=== PATIENT | male | born 1965 | race Caucasian/White ===

== ENCOUNTER 2017-11-19 18:38 | Emergency (ER) | payer BC ==
--- OUTSIDE RECORDS SUMMARY | 2017-11-19 18:54 | XMS REPORT ---
:1965 External Reference #:[id number] Author Organization [facility] Address [address] [address] Phone [phone] Care Team Providers Name Role Phone Contreras Sheikh DO Care Team Information Human Resources Records Clerk Unavailable Payers Type Date Identification Numbers Payment Provider Subscriber Commercial Effective: Policy Number: [id number] [facility] Commercial Jesus Robbins 2013 Group Number: [employer] [address] [address] Group Name: MINA Vogel [id number] PayID: [id number] Problems Date Description Provider Status Onset: 05/21/2014 Benign essential hypertension Contreras Sheikh DO Active Onset: 05/21/2014 Type 2 diabetes mellitus Contreras Sheikh DO Active Onset: 04/02/2012 Obstructive sleep apnea syndrome Contreras Sheikh DO Active Onset: 11/21/2011 Obesity Contreras Sheikh DO Active Onset: 11/21/2011 Essential hypertension Contreras Sheikh DO Active Family History Date Family Member(s) Problem(s) Comments Father [place] Father Gout Father Hypertension Father CVA Father Hypercholesterolemia Mother Hypertension Mother Hypercholesterolemia Mother Diabetes, Adult First Sister Thyroid Disease First Sister Bennett's palsy Maternal Grandfather Diabetes, Adult Maternal Grandmother Diabetes, Adult Maternal Aunts Cancer, Bone Social History Type Date Description Comments Education Highest level completed, 12th grade Marital Status Occupation Teacher Cigarette Use Never Smoked Cigarettes ETOH Use Occasionally consumes alcohol Recreational Drug Use Denies Drug Use Daily Caffeine Consumes on average 1 soda per day Allergies, Adverse Reactions, Alerts Date Description Reaction Status Severity Comments 05/22/2014 NKDA active Medications Medication Date Status Form Strength Qnty SIG Indications Ordering Provider Metformin HCL ER Active Tablets 500mg 90tabs Take One Sheikh, 017 ER 24HR Tablet Conterras, By Mouth DO Every Day Lisinopril Active Tablets 20mg 30tabs Take One Sheikh, 012 Tablet Contreras, By Mouth DO Every Day Chlorthalidone Active Tablets 25mg 30tabs Take One Sheikh, 012 Tablet Contreras, By Mouth DO Every Day Immunizations CPT Code Status Date Vaccine Lot # [id number] Given 11/21/2011 Tdap (Adacel) Ages 7 And Above Only Vital Signs Date Vital Result Comment 11/06/2017 Weight 259.00 lb Heart Rate 92 /min BP Systolic 148 mmHg BP Diastolic 94 mmHg Respiratory Rate 18 /min Height 66.5 inches 5'6.50" (04/2016) BMI (Body Mass Index) 41.2 kg/m2 05/25/2017 Weight 260.00 lb Heart Rate 82 /min BP Systolic 150 mmHg BP Diastolic 86 mmHg BP Systolic Recheck 132 mmHg BP Diastolic Recheck 82 mmHg Respiratory Rate 18 /min Height 66.5 inches 5'6.50" (04/2016) BMI (Body Mass Index) 41.3 kg/m2 02/16/2017 Weight 260.00 lb Heart Rate 80 /min BP Systolic 152 mmHg BP Diastolic 88 mmHg BP Systolic Recheck 130 mmHg BP Diastolic Recheck 84 mmHg Respiratory Rate 18 /min Height 66.5 inches 5'6.50" (04/2016) BMI (Body Mass Index) 41.3 kg/m2 11/21/2016 Weight 262.00 lb Heart Rate 72 /min BP Systolic 158 mmHg BP Diastolic 96 mmHg BP Systolic Recheck 136 mmHg BP Diastolic Recheck 90 mmHg Respiratory Rate 18 /min Height 66.5 inches 5'6.50" (04/2016) BMI (Body Mass Index) 41.6 kg/m2 05/02/2016 Weight 261.00 lb Heart Rate 80 /min BP Systolic 140 mmHg BP Diastolic 88 mmHg Respiratory Rate 18 /min Height 66.5 inches 5'6.50" (04/2016) BMI (Body Mass Index) 41.5 kg/m2 10/17/2015 Weight 260.00 lb Heart Rate 84 /min BP Systolic 140 mmHg BP Diastolic 94 mmHg Respiratory Rate 19 /min Height 66.5 inches 5'6.50" BMI (Body Mass Index) 41.3 kg/m2 02/14/2015 Weight 255.00 lb BP Systolic 148 mmHg BP Diastolic 98 mmHg BP Systolic Recheck 142 mmHg BP Diastolic Recheck 92 mmHg Height 66.5 inches 5'6.50" BMI (Body Mass Index) 40.5 kg/m2 10/09/2014 Weight 254.00 lb Heart Rate 88 /min BP Systolic 150 mmHg BP Diastolic 86 mmHg BP Systolic Recheck 144 mmHg BP Diastolic Recheck 94 mmHg Respiratory Rate 18 /min Height 66.5 inches 5'6.50" BMI (Body Mass Index) 40.4 kg/m2 05/23/2014 Weight 254.00 lb Heart Rate 80 /min BP Systolic 142 mmHg BP Diastolic 90 mmHg Respiratory Rate 18 /min Height 66.5 inches 5'6.50" BMI (Body Mass Index) 40.4 kg/m2 12/16/2013 Weight 250.00 lb Heart Rate 80 /min BP Systolic 142 mmHg BP Diastolic 86 mmHg Respiratory Rate 20 /min Height 66.5 inches 5'6.50" 07/28/2013 Weight 254.00 lb Heart Rate 70 /min BP Systolic 150 mmHg BP Diastolic 98 mmHg Respiratory Rate 18 /min Height 66.5 inches 5'6.50" 04/13/2013 Weight 247.00 lb Heart Rate 92 /min BP Systolic 140 mmHg BP Diastolic 94 mmHg Respiratory Rate 20 /min 10/11/2012 BP Systolic 144 mmHg BP Diastolic 98 mmHg 10/11/2012 Weight 250.00 lb Heart Rate 74 /min BP Systolic 150 mmHg BP Diastolic 100 mmHg Respiratory Rate 18 /min 04/02/2012 BP Systolic 144 mmHg BP Diastolic 94 mmHg 04/02/2012 Weight 256.00 lb Heart Rate 96 /min BP Systolic 160 mmHg BP Diastolic 100 mmHg Respiratory Rate 20 /min Height 66.5 inches 5'6.50" 12/22/2011 BP Systolic 120 mmHg BP Diastolic 86 mmHg 12/22/2011 Weight 253.56 lb Heart Rate 80 /min BP Systolic 132 mmHg BP Diastolic 100 mmHg Respiratory Rate 19 /min Height 66.5 inches 5'6.50" 12/05/2011 Weight 252.50 lb Heart Rate 90 /min BP Systolic 166 mmHg BP Diastolic 132 mmHg Respiratory Rate 18 /min Height 66.5 inches 5'6.50" 11/21/2011 Weight 254.12 lb Heart Rate 82 /min BP Systolic 170 mmHg BP Diastolic 134 mmHg Respiratory Rate 19 /min Height 66.5 inches 5'6.50" Results Test Date Test Result H/L Range Note Differential-WBC Confirm 05/29/2017 Total Cells Counted 100 #CELLS 1 Band% 1 % 0-8 1 Neutrophils% 53 % 33-73 1 Lymph% 19 % Low 20-42 1 Atypical Lymph% 5 % 0-7 1 Monocyte% 20 % High 0-10 1 Eosinophil% 1 % 0-5 1 Basophil% 1 % 0-2 1 Platelet Estimate NORMAL 1 RBC Morphology NORMAL 1 Slide Review 05/29/2017 Slide Review DIFF ORDERED 1 Hemoglobin A1c 05/29/2017 Glycohemoglobin (A1c) 6.6 % High 4.2-6.3 1, 2 eAG 143 mg/dL 1 CBC With Auto Diff 05/29/2017 White Blood Count 10.4 K/uL 3.4-10.5 1 Red Blood Count 5.35 M/uL 4.20-5.80 1 Hemoglobin 17.4 gm/dL High 12.8-17.0 1 Hematocrit 49.4 % High 38.0-48.0 1 Mean Cell Volume 92.3 fl 80.0-96.0 1 Mean Corpuscular HGB 32.5 pg 27.0-33.0 1 Mean Corpuscular HGB Conc 35.2 g/dL 31.7-36.0 1 Platelet Count 315 K/uL 155-360 1 Red Cell Distri Width SD 45.7 fl 36-51 1 Red Cell Distri Width %CV 13.6 % 11.6-15.8 1 Mean Platelet Volume 9.1 fL 6.6-10.6 1, 3 Neut# 6.42 K/uL 1.8-7.0 1 Lymph # 1.84 K/uL 1.0-4.0 1 Moffat # 1.87 K/uL High 0.0-0.8 1 Eos # 0.22 K/uL 0.0-0.5 1 Baso # 0.03 K/uL 0.0-0.1 1 Comprehensive Metabolic-RL 05/29/2017 Glucose 168 mg/dL High 74-106 1 BUN 19 mg/dL High 7-18 1 Creatinine 1.0 mg/dL 0.6-1.3 1 Glom Filtration Rate, Estimate >60 mL/min >60 1 If >60 mL/min >60 1, 4 BUN/Creat 19.0 ratio 1 Sodium 137 mmol/L 136-145 1 Potassium 3.6 mmol/L 3.5-5.1 1 Chloride 100 mmol/L 98-107 1 Carbon Dioxide 34 mmol/L High 21-32 1 Anion Gap 3 mEq/L Low 8-16 1 Calcium 9.3 mg/dL 8.5-10.1 1 Total Protein 8.0 g/dL 6.4-8.2 1 Albumin 3.6 g/dL 3.4-5.0 1 Globulin 4.4 g/dL High 1.9-4.3 1 Alb/Glob 0.8 ratio 1 Bilirubin,Total 0.5 mg/dL 0.2-1.0 1 Sgot/Ast 31 U/L 15-37 1 SGPT/Alt 55 U/L 12-78 1 Alkaline Phosphatase 93 U/L 45-117 1 Laboratory test finding 05/29/2017 Thyroid Stim Hormone 1.94 uIU/mL 0.30- 4.20 1 Lipid 05/29/2017 Cholesterol 194 mg/dL <200 1, 5 Triglycerides 181 mg/dL High <150 1, 6 HDL Cholesterol 49 mg/dL >40 1, 7 LDL-Cholesterol 109 mg/dL < 100 1, 8 Hemoglobin A1c 02/25/2017 Glycohemoglobin (A1c) 7.2 % High 4.2-6.3 9, 10 eAG 160 mg/dL 9 Laboratory test finding 11/24/2016 Fit(Fecal Occult Blood) Negative Negative Hemoglobin A1c 11/21/2016 Hemoglobin A1c 8.4 % High 4.1-5.9 Estimated Average Glucose Calc 194 High 71-140 CBC With Auto Diff 11/21/2016 WBC 12.2 K/uL High 4.1-11.0 RBC 5.11 M/uL 4.60-6.10 Hemoglobin 16.4 gm/dL 13.5-18.0 Hematocrit 47.5 % 41.0-53.0 MCV 93.0 fL 80.0-97.0 MCH 32.2 pg High 27.0-32.0 MCHC 34.6 g/dL 32.0-36.0 RDW 13.7 % 11.5-14.5 PLT Count 306 K/ul 140-400 Neutrophil 67.1 % 35.0-75.0 Lymphocyte 19.9 % 16.0-52.0 Monocyte 11.2 % High 2.0-10.0 Eosinophil 1.3 % 0.0-5.0 Basophil 0.5 % 0.0-4.0 Abs Neutrophils 8.2 K/uL High 2.1-8.0 Abs Lymphocytes 2.4 K/uL 0.8-5.5 Abs Monocytes 1.4 K/uL High 0.1-1.0 Abs Eosinophils 0.2 K/uL 0.0-0.5 Abs Basophils 0.1 K/uL 0.0-0.3 Basic (BMP) 11/21/2016 Sodium 136 mmol/L 135-146 11 Potassium 3.9 mmol/L 3.5-5.2 Chloride# 95 mmol/L Low 97-110 12 Carbon Dioxide 30 mmol/L 24-34 Glucose 168 mg/dL High 70-105 BUN 18 mg/dL 6-26 Creatinine 1.1 mg/dL 0.5-1.4 Calcium 9.7 mg/dL 8.5-10.2 Non Margoth Egfr >60 >60 13 Margoth Egfr >60 >60 14 Anion Gap 11 mmol/L 7-16 15 Laboratory test finding 11/21/2016 TSH 1.86 uIU/mL 0.35-4.94 Lipid Treatment 11/21/2016 Cholesterol 171 mg/dL 50-199 Triglycerides 183 mg/dL 30-200 HDL 45 mg/dL 29-71 16 Chol/ HDL Ratio 3.8 ratio Low 4.0-6.7 VLDL 37 mg/dL High 2-29 LDL (Calc) 90 mg/dL 20-99 17 Alt 49 U/L High 3-42 Ast 25 U/L 8-42 Glycohemoglobin A1c 05/08/2016 Glycohemoglobin (A1c) 7.2 % High 4.2-6.3 18, 19 eAG 160 mg/dL 18 Basic Metabolic Panel 05/08/2016 Glucose 127 mg/dL High 74-106 18 BUN 22 mg/dL High 7-18 18 Creatinine 1.0 mg/dL 0.6-1.3 18 Glom Filtration Rate, Estimate >60 mL/min >60 18 If >60 mL/min >60 18, 20 BUN/Creat 22.0 ratio 18 Sodium 139 mmol/L 136-145 18 Potassium 3.5 mmol/L 3.5-5.1 18 Chloride 102 mmol/L 98-107 18 Carbon Dioxide 28 mmol/L 21-32 18 Anion Gap 9 mEq/L 8-16 18 Calcium 9.0 mg/dL 8.5-10.1 18 LDL Cholesterol Profile 05/08/2016 Cholesterol 161 mg/dL <200 18, 21 Triglycerides 83 mg/dL <150 18, 22 HDL Cholesterol 45 mg/dL >40 18, 23 LDL-Cholesterol 99 mg/dL < 100 18, 24 Lipid Treatment 10/30/2015 Cholesterol 190 mg/dL 50-199 25 Triglycerides 159 mg/dL 30-200 25 HDL 45 mg/dL 29-71 25, 26 Chol/ HDL Ratio 4.2 ratio 4.0-6.7 25 VLDL 32 mg/dL High 2-29 25 LDL (Calc) 113 mg/dL High 20-99 25, 27 Alt 33 U/L 3-42 25 Ast 21 U/L 8-42 25 Laboratory test finding 10/30/2015 Hemoglobin A1c 7.4 % High 4.1-5.9 25 CBC With Auto Diff 10/30/2015 WBC 13.3 K/uL High 4.1-11.0 25 RBC 5.13 M/uL 4.60-6.10 25 Hemoglobin 16.6 gm/dL 13.5-18.0 25 Hematocrit 47.4 % 41.0-53.0 25 MCV 92.4 fL 80.0-97.0 25 MCH 32.3 pg High 27.0-32.0 25 MCHC 35.0 g/dL 32.0-36.0 25 RDW 13.5 % 11.5-14.5 25 PLT Count 318 K/ul 140-400 25 Neutrophil 73.3 % 35.0-75.0 25 Lymphocyte 15.5 % Low 16.0-52.0 25 Monocyte 10.0 % 2.0-10.0 25 Eosinophil 0.8 % 0.0-5.0 25 Basophil 0.4 % 0.0-4.0 25 Abs Neutrophils 9.8 K/uL High 2.1-8.0 25 Abs Lymphocytes 2.1 K/uL 0.8-5.5 25 Abs Monocytes 1.3 K/uL High 0.1-1.0 25 Abs Eosinophils 0.1 K/uL 0.0-0.5 25 Abs Basophils 0.1 K/uL 0.0-0.3 25 Basic (BMP) 10/30/2015 Sodium 137 mmol/L 134-142 25 Potassium 4.0 mmol/L 3.5-5.2 25 Chloride 98 mmol/L 97-109 25 Carbon Dioxide 31 mmol/L 24-34 25 Glucose 143 mg/dL High 70-105 25 BUN 19 mg/dL 6- 25 Creatinine 1.1 mg/dL 0.5-1.4 25 Calcium 9.6 mg/dL 8.5-10.2 25 Anion Gap 12 mmol/L 6-14 25 Non Margoth Egfr >60 >60 25, 28 Margoth Egfr >60 >60 25, 29 Laboratory test finding 10/30/2015 TSH 2.00 uIU/mL 0.35-4.94 25 Laboratory test finding 02/14/2015 Hemoglobin A1c 6.6 % High 4.1-5.9 Basic ([facility]) 02/14/2015 Sodium 133 mmol/L Low 134-142 Potassium 4.1 mmol/L 3.5-5.2 Chloride 97 mmol/L 97-109 Carbon Dioxide 29 mmol/L 24- Glucose 100 mg/dL 70-105 BUN 16 mg/dL 09-29 Creatinine 1.0 mg/dL 0.5-1.4 Calcium 9.1 mg/dL 8.5-10.2 Anion Gap 11 mmol/L 09-17 Non Margoth Egfr >60 >60 30 Margoth Egfr >60 >60 31 Laboratory test finding 10/09/2014 Hemoglobin A1c 6.8 % High 4.1-5.9 Basic (BMP) 10/09/2014 Sodium 134 mmol/L 134-142 Potassium 3.9 mmol/L 3.5-5.2 Chloride 97 mmol/L 97-109 Carbon Dioxide 28 mmol/L 24 Glucose 143 mg/dL High 70-105 BUN 18 mg/dL 09-29 Creatinine 1.0 mg/dL 0.5-1.4 Calcium 9.1 mg/dL 8.5-10.2 Anion Gap 13 mmol/L 09-17 Non Margoth Egfr >60 >60 32 Margoth Egfr >60 >60 33 Lipid Treatment 10/09/2014 Cholesterol 181 mg/dL 50-199 Triglycerides 90 mg/dL 30-200 HDL 44 mg/dL 29-71 34 Chol/ HDL Ratio 4.1 ratio 4.0-6.7 VLDL 18 mg/dL 2-29 LDL (Calc) 119 mg/dL High 20-99 35 Alt 35 U/L 3-42 Ast 25 U/L 8-42 Lipid Treatment 05/24/2014 Cholesterol 185 mg/dL 50-199 Triglycerides 132 mg/dL 30-200 HDL 41 mg/dL 29- 36 Chol/ HDL Ratio 4.5 ratio 4.0-6.7 VLDL 26 mg/dL 2- LDL (Calc) 118 mg/dL High 20-99 37 Alt 30 U/L 3-42 Ast 20 U/L 8-42 Laboratory test finding 05/24/2014 TSH 2.77 uIU/mL 0.34-5.60 Basic (BMP) 05/24/2014 Sodium 135 mmol/L 134-142 Potassium 4.2 mmol/L 3.5-5.2 Chloride 95 mmol/L Low 97-109 Carbon Dioxide 33 mmol/L 24-34 Glucose 116 mg/dL High 70-105 BUN 14 mg/dL 6 Creatinine 1.0 mg/dL 0.5-1.4 Calcium 9.9 mg/dL 8.5-10.2 Anion Gap 11 mmol/L 6-14 Non Margoth Egfr >60 >60 38 Margoth Egfr >60 >60 39 CBC With Auto Diff 05/24/2014 WBC 11.2 K/uL High 4.1-11.0 RBC 5.36 M/uL 4.60-6.10 Hemoglobin 17.1 gm/dL 13.5-18.0 Hematocrit 50.4 % 41.0-53.0 MCV 94.1 fL 80.0-97.0 MCH 31.9 pg 27.0-32.0 MCHC 33.9 g/dL 32.0-36.0 RDW 13.6 % 11.5-14.5 PLT Count 337 K/ul 140-400 Neutrophil 68.5 % 35.0-75.0 Lymphocyte 19.0 % 16.0-52.0 Monocyte 11.4 % High 2.0-10.0 Eosinophil 0.7 % 0.0-5.0 Basophil 0.4 % 0.0-4.0 Abs Neutrophils 7.7 K/uL 2.1-8.0 Abs Lymphocytes 2.1 K/uL 0.8-5.5 Abmon 1.3 K/uL High 0.1-1.0 Abs Eosinophils 0.1 K/uL 0.0-0.5 Abs Basophils 0.0 K/uL 0.0-0.3 Laboratory test finding 05/24/2014 Hemoglobin A1c 6.4 % High 4.1-5.9 Laboratory test finding 11/30/2013 % A1c 6.5 % 4.1-6.5 % Baso. 0.6 % 0.0-2.0 % Eos. 1.2 % 0.0-4.0 % Lymph 21 % 20-44 % Moffat 9.9 % 2.0-10.0 % Dante 68 % 50-70 Absolute Baso. 0.1 K/ul 0.0-0.3 Absolute Eos. 0.1 K/ul 0.0-0.5 Absolute Lymph. 2.3 K/ul 0.8-4.8 Absolute Moffat. 1.1 K/ul High 0.1-1.0 Absolute Dante. 7.70 K/ul High 2.05-7.63 Alt 38.0 U/L 21.0-72.0 Ast 22.0 U/L 17.0-59.0 BUN 20.0 mg/dL 9.0-21.0 BUN/Creat Ratio 20.0 ratio 12.0-20.0 Calcium 9.3 mg/dL 8.7-10.5 Chloride 100.0 mmol/L 98.0-107.0 Co2 28.0 mmol/L 22.0-30.0 Creatinine-Serum 1.0 mg/dL 0.8-1.5 Glucose 111.0 mg/dL High 75.0-110.0 HCT 50.5 % 37.0-51.0 HGB 17.3 Gm/dl High 12.0-16.0 MCH 31.4 pg 26.0-32.0 MCHC 34.1 g/dL 31.0-36.0 MCV 91.9 Fl 80.0-97.0 MPV 6.0 fL 6.0-10.0 PLT 327 K/ul 140-440 Potasium 4.0 mmol/L 3.6-5.0 RBC 5.5 M/ul 4.2-6.3 RDW 12.3 % 11.5-14.5 Sodium 139.0 mmil/L 137.0-145.0 TSH 1.65 uIU/ml 0.50-6.00 WBC 11.4 K/ul High 4.1-10.9 eGFR 84.1 Lipid Panel 11/30/2013 Chol/HDL Ratio 4.6 ratio Cholesterol 193.0 mg/dL 50.0-199.0 HDL 42.0 mg/dL 29.0-67.0 LDL, Calculated 127.2 mg/dL 20.0-129.0 Triglycerides 119.0 mg/dL 30.0-249.0 vLDL 23.8 ng/dL Laboratory test finding 07/22/2013 % A1c 6.9 % High 4.1-6.5 Laboratory test finding 04/07/2013 % A1c 6.8 % High 4.1-6.5 A/G Ratio 1.3 ratio Low 1.6-2.2 Albumin 3.9 g/dL 3.5-5.0 Alk. Phos. 85.0 U/L 30.0-126.0 Alt 40.0 U/L 21.0-72.0 Anion Gap 12.0 mmol/L 10.0-20.0 Ast 25.0 U/L 17.0-59.0 BUN 16.0 mg/dL 9.0-21.0 BUN/Creat Ratio 16.0 ratio 12.0-20.0 Calcium 9.1 mg/dL 8.7-10.5 Chloride 98.0 mmol/L 98.0-107.0 Co2 27.0 mmol/L 22.0-30.0 Creatinine-Serum 1.0 mg/dL 0.8-1.5 Globulin 2.9 g/dL 2.7-4.3 Glucose 126.0 mg/dL High 75.0-110.0 Potasium 3.7 mmol/L 3.6-5.0 Sodium 137.0 mmil/L 137.0-145.0 Total Bilirubin 0.6 mg/dL 0.2-1.3 Total Protein 6.8 g/dL 6.3-8.2 eGFR 82.5 mi/minper1.73 40 Laboratory test finding 10/04/2012 % Baso. 1.3 % 0.0-2.0 % Eos. 1.3 % 0.0-4.0 % Lymph 23 % 20-44 % Moffat 10.5 % High 2.0-10.0 % Dante 64 % 50-70 A/G Ratio 1.4 ratio Low 1.6-2.2 Absolute Baso. 0.1 K/ul 0.0-0.3 Absolute Eos. 0.1 K/ul 0.0-0.5 Absolute Lymph. 2.5 K/ul 0.8-4.8 Absolute Moffat. 1.1 K/ul High 0.1-1.0 Absolute Dante. 6.87 K/ul 2.05-7.63 Albumin 4.0 g/dL 3.5-5.0 Alk. Phos. 78.0 U/L 30.0-126.0 Alt 42.0 U/L 21.0-72.0 Anion Gap 14.0 mmol/L 10.0-20.0 Ast 33.0 U/L 17.0-59.0 BUN 18.0 mg/dL 9.0-21.0 BUN/Creat Ratio 15.0 ratio 12.0-20.0 Calcium 9.4 mg/dL 8.7-10.5 Chloride 99.0 mmol/L 98.0-107.0 Co2 25.0 mmol/L 22.0-30.0 Creatinine-Serum 1.2 mg/dL 0.8-1.5 Globulin 2.9 g/dL 2.7-4.3 Glucose 118.0 mg/dL High 75.0-110.0 HCT 46.5 % 37.0-51.0 HGB 16.5 Gm/dl High 12.0-16.0 MCH 32.8 pg High 26.0-32.0 MCHC 35.4 g/dL 31.0-36.0 MCV 92.6 Fl 80.0-97.0 MPV 6.6 fL 6.0-10.0 PLT 332 K/ul 140-440 Potasium 3.8 mmol/L 3.6-5.0 RBC 5.0 M/ul 4.2-6.3 RDW 11.9 % 11.5-14.5 Sodium 138.0 mmil/L 137.0-145.0 TSH 2.44 uIU/ml 0.50-6.00 Total Bilirubin 0.8 mg/dL 0.2-1.3 Total Protein 6.9 g/dL 6.3-8.2 WBC 10.8 K/ul 4.1-10.9 eGFR 67.9 mi/minper1.73 41 Lipid Panel 10/04/2012 Chol/HDL Ratio 4.8 ratio Cholesterol 190.0 mg/dL 50.0-199.0 HDL 40.0 mg/dL 29.0-67.0 LDL, Calculated 126.0 mg/dL 20.0-129.0 Triglycerides 120.0 mg/dL 30.0-249.0 vLDL 24.0 ng/dL Laboratory test finding 11/27/2011 A/G Ratio 1.1 1.0-2.2 42 Absolute Basophils 0.088 K/ul 0.0-0.3 42 Absolute Eosinophils 0.672 K/ul High 0.0-0.5 42 Absolute Lymphocytes 2.30 K/ul 0.8-4.8 42 Absolute Monocytes 1.07 K/ul High 0.1-1.0 42 Absolute Neutrophils 7.28 K/ul 2.05-7.63 42 Albumin 4.2 g/dL 3.5-5.0 42 Alkaline Phosphatase 99 U/L 30-126 42 Alt 41 U/L 21-72 42 Ast 28 U/L 17-59 42 BUN 15 mg/dL 9-21 42 BUN/CR Ratio 15.2 Ratio 12-20 42 Basophil 0.8 % 0-2 42 Calcium 9.2 mg/dL 8.7-10.5 42 Carbon Dioxide 29 mmol/L 22-30 42 Chloride 94 mmol/L Low 98-107 42 Creatinine, Serum 1.0 mg/dL 0.8-1.5 42 Cytology See Note 42, 43 Eosinophil 5.9 % High 0-4 42 Globulin 3.7 g/dL 2.7-4.3 42 Glucose 110 mg/dL 75-110 42 Hematocrit 56.3 % High 37.0-51.0 42, 44 Hemoglobin 18.6 GM/dl High 12.0-16.0 42, 45 Lymphocytes 20.2 % 20-44 42 MCH 30.6 pg 26.0-32.0 42 MCHC 33.1 g/dL 31.0-36.0 42 MCV 92 FL 80-97 42 Monocytes 9.3 % 2-10.0 42 Neutrophils 63.8 % 50-70 42 Platelet Count 340 K/ul 140-440 42 Potassium 4.4 mmol/L 3.6-5.0 42 RBC 6.10 M/ul 4.2-6.3 42 RDW 12.4 % 11.5-14.5 42 Sodium 138 mmol/L 137-145 42 TSH 2.668 uIU/ml 0.50-6.00 42 Total Bilirubin 1.0 mg/dL 0.2-1.3 42 Total Protein 7.9 g/dL 6.3-8.2 42 WBC 11.4 K/ul High 4.1-10.9 42 Lipid Panel 11/27/2011 Chol/HDL Ratio 4.4 42, 46 Cholesterol 217 mg/dL High 50-199 42 HDL Cholesterol 49 mg/dL 29-67 42 LDL 143 mg/dL High 20-129 42 Triglycerides 123 mg/dL 30-249 42 VLDL Cholesterol 25 mg/dL 42 Laboratory test finding 11/27/2011 Aldosterone 12.2 ng/dL 0.0-30.0 42, 47 Magnesium 1.8 mg/dL 1.7-2.3 42 Microalbumin,Random Urine 19.3 mg/L High 0.0-18.5 42 Renin Plasma 0.66 ng/mL/hr . 42, 48 Uric Acid 6.7 mg/dL 2.1-7.4 42 Urine Amorph Sediment Small Negative 42 Urine Bacteria Very Few None Seen 42 Urine Bilirubin - Dipstick Negative Negative 42 Urine Blood Trace Negative 42 Urine Clarity Clear Clear 42 Urine Color Yellow Yellow 42 Urine Epithelial Cells Very Few None Seen 42 Urine Glucose - Dipstick Negative mg/dL Negative 42 Urine Ketone Negative mg/dL Negative 42 Urine Leuk Esterase Negative Negative 42 Urine Nitrite - Dipstick Negative Negative 42 Urine PH 6.0 Low 6.5-7.5 42 Urine Protein - Dipstick Negative mg/dL Negative 42 Urine RBC 0-2 rbc/hpf 0-7 42 Urine Specific [place] >=1.030 1.010-1.030 42 Urine Urobilinogen - Dipstick 0.2 E.U./dL 0.2-1.0 42 Urine WBC 0-2 wbc/hpf 0-7 42 1 E11.9 I10 2 Elevated levels of HbA1c suggest the need for more aggressive treatment of glycemia. The [place] [employer] recommends that a primary goal of therapy should be a HbA1c of <7% and that physicians should re-evaluate the treatment regimen in patients with HbA1c values consistently >8%. 3 05/29/17 1108: NEUT% previously reported as: 61.9 % Amended result called to: [] - 05/29/17 at 1108 05/29/17 1108: LYMPH % previously reported as: 17.7 L % Amended result called to: [] - 05/29/17 at 1108 05/29/17 1108: MONO % previously reported as: 18.0 H % Amended result called to: [] 05/29/17 at 1108 05/29/17 1108: EO% previously reported as: 2.1 % Amended result called to: [] - 05/29/17 at 1108 05/29/17 1108: BAS% previously reported as: 0.3 % Amended result called to: [] 05/29/17 at 1108 4 Note: Persistent reduction for 3 months or more in an eGFR <60 mL/min/1.73 m2 defines CKD. Patients with eGFR values >/=60 mL/min/1.73 m2 may also have CKD if evidence of persistent proteinuria is present. The original MDRD equation for estimated GFR is not valid for patients less than 18 years of age. Additional information may be found at www.kdoqi.org. 5 Reference Guidelines*: Desirable: ........... < 200 mg/dL Borderline High: ..... 200-239 mg/dL High: ................ >=240 mg/dL * The National Cholesterol Education Program (NCEP) 6 Reference Guidelines*: Normal: ............. < 150 mg/dL Borderline High: .... 150-199 mg/dL High: ............... 200-499 mg/dL Very High: .......... > 500 mg/dL * Source: National Cholesterol Education Program (NCEP) 7 Reference Guidelines*: Low HDL: ..... < 40 mg/dL Normal: ..... 40-60 mg/dL Desirable: ... > 60 mg/dL *The National Cholesterol Education Program(NCEP) 8 Reference Guidelines*: Optimal:........... <100 mg/dL Near Optimal....... 100-129 mg/dL Borderline High.... 130-159 mg/dL High............... 160-189 mg/dL Very High.......... >=190 mg/dL * Source: National Cholesterol Education Program (NCEP) 9 E11.9 10 Elevated levels of HbA1c suggest the need for more aggressive treatment of glycemia. The [place] [employer] recommends that a primary goal of therapy should be a HbA1c of <7% and that physicians should re-evaluate the treatment regimen in patients with HbA1c values consistently >8%. 11 Updated reference range on new analyzer 12 Updated reference range on new analyzer 13 Concerning GFR Guidelines: Normal function or mild renal disease, if clinically at risk: >/=60 mL/min Moderately decreased: 30-59 Severely decreased: 15-29 Renal failure: <15 Glomerular Filtration Rate (GFR) is estimated based on the MDRD equation, which assumes a steady state for creatinine as recommended by the National Kidney Disease Education Program in conjunction with the National Institutes of Health and the National Kidney Foundation. Clinical conditions in which it may be necessary to measure GFR by using clearance methods include extremes of age and body size, severe malnutrition or obesity, diseases of skeletal muscle, paraplegia or quadriplegia, vegetarian diet, rapidly changing kidney function, and calculation of the dose of potentially toxic drugs that are excreted by the kidneys. 14 Concerning GFR Guidelines for Americans: Normal function or mild renal disease, if clinically at risk: >/=60 mL/min Moderately decreased: 30-59 Severely decreased: 15-29 Renal failure: <15 15 Updated reference range on new analyzer 16 Per NCEP ATP III Guidelines: Results lower than 40 mg/dL are suggestive of increased risk for coronary artery disease. Results > or=to 60 mg/dL are considered a negative risk factor. 17 Per NCEP ATP III Guidelines: Normal Population <130 Patients with medical conditions: CHD/DM Optimal: <100 Borderline high: 130-159 High: 160-189 Very high: >189 18 E11.9,I10 19 Elevated levels of HbA1c suggest the need for more aggressive treatment of glycemia. The [place] [employer] recommends that a primary goal of therapy should be a HbA1c of <7% and that physicians should re-evaluate the treatment regimen in patients with HbA1c values consistently >8%. 20 Note: Persistent reduction for 3 months or more in an eGFR <60 mL/min/1.73 m2 defines CKD. Patients with eGFR values >/=60 mL/min/1.73 m2 may also have CKD if evidence of persistent proteinuria is present. The original MDRD equation for estimated GFR is not valid for patients less than 18 years of age. Additional information may be found at www.kdoqi.org. 21 Reference Guidelines*: Desirable: ........... < 200 mg/dL Borderline High: ..... 200-239 mg/dL High: ................ >=240 mg/dL * The National Cholesterol Education Program (NCEP) 22 Reference Guidelines*: Normal: ............. < 150 mg/dL Borderline High: .... 150-199 mg/dL High: ............... 200-499 mg/dL Very High: .......... > 500 mg/dL * Source: National Cholesterol Education Program (NCEP) 23 Reference Guidelines*: Low HDL: ..... < 40 mg/dL Normal: ..... 40-60 mg/dL Desirable: ... > 60 mg/dL *The National Cholesterol Education Program(NCEP) 24 Reference Guidelines*: Optimal:........... <100 mg/dL Near Optimal....... 100-129 mg/dL Borderline High.... 130-159 mg/dL High............... 160-189 mg/dL Very High.......... >=190 mg/dL * Source: National Cholesterol Education Program (NCEP) 25 Fastin hours 26 Per NCEP ATP III Guidelines: Results lower than 40 mg/dL are suggestive of increased risk for coronary artery disease. Results > or=to 60 mg/dL are considered a negative risk factor. 27 Per NCEP ATP III Guidelines: Normal Population <130 Patients with medical conditions: CHD/DM Optimal: <100 Borderline high: 130-159 High: 160-189 Very high: >189 28 Concerning GFR Guidelines: Normal function or mild renal disease, if clinically at risk: >/=60 mL/min Moderately decreased: 30-59 Severely decreased: 15-29 Renal failure: <15 Glomerular Filtration Rate (GFR) is estimated based on the MDRD equation, which assumes a steady state for creatinine as recommended by the National Kidney Disease Education Program in conjunction with the National Institutes of Health and the National Kidney Foundation. Clinical conditions in which it may be necessary to measure GFR by using clearance methods include extremes of age and body size, severe malnutrition or obesity, diseases of skeletal muscle, paraplegia or quadriplegia, vegetarian diet, rapidly changing kidney function, and calculation of the dose of potentially toxic drugs that are excreted by the kidneys. 29 Concerning GFR Guidelines for Americans: Normal function or mild renal disease, if clinically at risk: >/=60 mL/min Moderately decreased: 30-59 Severely decreased: 15-29 Renal failure: <15 30 Concerning GFR Guidelines: Normal function or mild renal disease, if clinically at risk: >/=60 mL/min Moderately decreased: 30-59 Severely decreased: 15-29 Renal failure: <15 Glomerular Filtration Rate (GFR) is estimated based on the MDRD equation, which assumes a steady state for creatinine as recommended by the National Kidney Disease Education Program in conjunction with the National Institutes of Health and the National Kidney Foundation. Clinical conditions in which it may be necessary to measure GFR by using clearance methods include extremes of age and body size, severe malnutrition or obesity, diseases of skeletal muscle, paraplegia or quadriplegia, vegetarian diet, rapidly changing kidney function, and calculation of the dose of potentially toxic drugs that are excreted by the kidneys. 31 Concerning GFR Guidelines for Americans: Normal function or mild renal disease, if clinically at risk: >/=60 mL/min Moderately decreased: 30-59 Severely decreased: 15-29 Renal failure: <15 32 Concerning GFR Guidelines: Normal function or mild renal disease, if clinically at risk: >/=60 mL/min Moderately decreased: 30-59 Severely decreased: 15-29 Renal failure: <15 Glomerular Filtration Rate (GFR) is estimated based on the MDRD equation, which assumes a steady state for creatinine as recommended by the National Kidney Disease Education Program in conjunction with the National Institutes of Health and the National Kidney Foundation. Clinical conditions in which it may be necessary to measure GFR by using clearance methods include extremes of age and body size, severe malnutrition or obesity, diseases of skeletal muscle, paraplegia or quadriplegia, vegetarian diet, rapidly changing kidney function, and calculation of the dose of potentially toxic drugs that are excreted by the kidneys. 33 Concerning GFR Guidelines for Americans: Normal function or mild renal disease, if clinically at risk: >/=60 mL/min Moderately decreased: 30-59 Severely decreased: 15-29 Renal failure: <15 34 Per NCEP ATP III Guidelines: Results lower than 40 mg/dL are suggestive of increased risk for coronary artery disease. Results > or=to 60 mg/dL are considered a negative risk factor. 35 Per NCEP ATP III Guidelines: Normal Population <130 Patients with medical conditions: CHD/DM Optimal: <100 Borderline high: 130-159 High: 160-189 Very high: >189 36 Per NCEP ATP III Guidelines: Results lower than 40 mg/dL are suggestive of increased risk for coronary artery disease. Results > or=to 60 mg/dL are considered a negative risk factor. 37 Per NCEP ATP III Guidelines: Normal Population <130 Patients with medical conditions: CHD/DM Optimal: <100 Borderline high: 130-159 High: 160-189 Very high: >189 38 Concerning GFR Guidelines: Normal function or mild renal disease, if clinically at risk: >/=60 mL/min Moderately decreased: 30-59 Severely decreased: 15-29 Renal failure: <15 Glomerular Filtration Rate (GFR) is estimated based on the MDRD equation, which assumes a steady state for creatinine as recommended by the National Kidney Disease Education Program in conjunction with the National Institutes of Health and the National Kidney Foundation. Clinical conditions in which it may be necessary to measure GFR by using clearance methods include extremes of age and body size, severe malnutrition or obesity, diseases of skeletal muscle, paraplegia or quadriplegia, vegetarian diet, rapidly changing kidney function, and calculation of the dose of potentially toxic drugs that are excreted by the kidneys. 39 Concerning GFR Guidelines for Americans: Normal function or mild renal disease, if clinically at risk: >/=60 mL/min Moderately decreased: 30-59 Severely decreased: 15-29 Renal failure: <15 40 For -[place] Citizen patients multiply result by 1.180 41 For -[place] Citizen patients multiply result by 1.180 42 FASTING 43 Cytology Laboratory [address] [facility], [facility] [address] [place] [address] CYTOLOGY REPORT Name: Jesus Robbins : 1965 (Age: 46) Sex:M Location: [facility] Med. Rec. # [id number] Date Collected: 11/27/2011 Billing #: [id number] Date Received: 2011 Requisition #: [id number] Physician(s): CONTRERAS SHEIKH DO Source of Specimen: URINE Clinical Information 46-year-old male with hematuria, 599.70 Gross Description Received 100 cc. of cloudy yellow fluid. Final Diagnosis NO MALIGNANT CELLS IDENTIFIED. RED BLOOD CELLS NOTED. mela Electronic Signature Jeffery Lenz MD Reported: 11/28/2011 Also seen by: ISABELLE Duran (ASCP) Cytology Outreach [facility] ICD-9 Code(s) 44 CRITICAL VALUE TO 11/27/11 @ 9:55 CONFIRMED 45 CRITICAL VALUE TO 11/27/11 @ 9:55 CONFIRMED 46 Normal Range: Male: <4.98 Female: <4.45 47 Performed at: [address] [id number] Seed Analyst: Jonathan Esquivel MD, Phone: [phone] Adult Normal Salt Intake: Upright 1.31 - 3.95 Supine 0.15 - 2.33 Salt Excretion (Na mEq/24 hr): Na=0 - 30 8.82 - 23.86 Na=30 - 75 4.09 - 7.73 Na=75 - 150 1.44 - 2.80 Na=>150 0.39 - 1.31 Procedures Date CPT Code Description Status 11/21/2011 60004 Visual Screening Test Completed 11/21/2011 16033 Screening Hearing Test Completed Encounters Type Date Location Provider CPT E/M Dx Office Visit 05/25/2017 10:00a [place] [address] E11.9 I10 E78.2 E66.09 G47.30 Office Visit 02/16/2017 8:15a [place] [address] E11.9 I10 E78.2 E66.09 G47.30 Office Visit 11/21/2016 8:00a [place] [address] E11.9 I10 E78.2 E66.09 G47.30 Z12.11 Office Visit 05/02/2016 8:45a [place] [address] E11.9 I10 E78.2 E66.09 G47.30 Office Visit 10/17/2015 9:45a [place] [address] E11.9 I10 E66.09 G47.30 E78.2 Office Visit 02/14/2015 8:30a [facility] [place] [place] [address] E11.9 I10 E66.09 G47.30 E78.2 Office Visit 10/09/2014 8:00a [facility] [place] [address] 250.00 401.1 278.00 780.57 Office Visit 05/23/2014 9:45a [facility] [place] [place] [address] 250.00 401.1 780.57 278.00 Plan of Care Future Appointment(s):05/20/2018 8:15 am - Contreras Sheikh DO at [facility]11/06/2017 - Contreras Sheikh DOE11.9 Type 2 diabetes mellitus without complicationsNew Labs :Hemoglobin D8pYumkqa up:Get labs done at the hospital soon and see me in about 6 months.I10 Essential (primary) hypertensionNew Labs:CBC with Auto Diff- fcmgLipidTSHComprehensive Met Panel-FCMGE78.2 Mixed ctdskamzawfvwhY73.30 Sleep apnea, lwdphyudosjX15.41 Body mass index (BMI) 40.0-44.9, adult
[2017-11-19 19:01] VITALS: BP 174/100
--- NOTE | 2017-11-19 19:03 | UC ---
Dental HPI - HPI Summary HPI Summary: 52 yo male presents with right upper tooth/gum pain since yesterday. He tells me that about 6 months ago he broke a tooth here and had a piece fall out. Hasn' t had any issues with it since, but did not see his dentist for this. Yesterday he developed pain in the area with mild swelling. Today pain and swelling are worse. He does have a dentist, but has not called them for an appt. He is able to eat and drink, but does have moderate pain. Denies fever, chills, sore throat. - History of Current Complaint Chief Complaint: UCDentalProblem Stated Complaint: ORAL COMPLAINT Time Seen by Provider: 11/19/17 19:03 Hx Obtained From: Patient Onset/Duration: Gradual Onset Severity: Moderate Pain Intensity: 8 Pain Scale Used: 0-10 Numeric - Allergies/Home Medications Allergies/Adverse Reactions: Allergies Allergy/AdvReac Type Severity Reaction Status Date / Time No Known Allergies Allergy Verified 11/19/17 18:53 Home Medications: Home Medications Chlorthalidone 25 mg PO DAILY 11/19/17 [History Confirmed 11/19/17] Ibuprofen TAB* [Advil TAB*] 800 mg PO Q8H PRN 11/19/17 [History Confirmed ] Lisinopril 5 mg PO DAILY 11/19/17 [History Confirmed 11/19/17] metFORMIN* [Glucophage 1000 MG TAB *] 1,000 mg PO BEDTIME 11/19/17 [History Confirmed 11/19/17] PMH/Surg Hx/FS Hx/Imm Hx Endocrine History: Diabetes Cardiovascular History: Hypertension - Surgical History Surgical History: None - Family History Known Family History: Positive: Diabetes - Social History Occupation: Employed Full-time Lives: With Family Alcohol Use: Occasionally Substance Use Type: None Smoking Status (MU): Never Smoked Tobacco Review of Systems Constitutional: Negative Skin: Negative Eyes: Negative ENT: Dental Pain Respiratory: Negative Cardiovascular: Negative Gastrointestinal: Negative Neurological: Negative Psychological: Negative All Other Systems Reviewed And Are Negative: Yes Physical Exam - Summary Physical Exam Summary: GENERAL: NAD. WDWN. No pain distress. SKIN: No rashes, sores, lesions, or open wounds. HEENT: Head: AT/NC Nose: NTTP maxillary sinus. Throat: Posterior oropharynx without exudates, erythema, or tonsillar enlargement. Uvula midline. NECK: Supple. Nontender. No lymphadenopathy. CHEST: No accessory muscle use. Breathing comfortably and in no distress. CV: Pulses intact. Cap refill <2seconds NEURO: Alert. PSYCH: Age appropriate behavior. Triage Information Reviewed: Yes Vital Signs: Initial Vital Signs Temp 99.2 F 11/19/17 18:56 Pulse 85 11/19/17 18:56 Resp 20 11/19/17 18:56 BP 174/100 11/19/17 18:56 Pulse Ox 98 11/19/17 18:56 Vital Signs Reviewed: Yes Dental: Positive: Percussion Tenderness @ - Tooth #3, Gross Decay/Caries @ - Throughout, Dental Fracture @ - Tooth #3, Abscess @ - Tooth #3. Negative: Cellulitis @, Cervical Lymphadenopathy, Bleeding Dental Complaint Course/Dx - Course Course Of Treatment: Dental abscess Tooth #3 - Differential Dx/Diagnosis Provider Diagnoses: Tooth #3 abscess Discharge - Sign-Out/Discharge Documenting (check all that apply): Patient Departure - Discharge Plan Condition: Stable Disposition: HOME Prescriptions: Amoxicillin/Clavulanate TAB* [Augmentin TAB 875*] 875 mg PO BID #14 tab Patient Education Materials: Dental Abscess (ED) Referrals: Contreras Brock DO [Primary Care Provider] - Additional Instructions: If you develop a fever, shortness of breath, chest pain, new or worsening symptoms - please call your PCP or go to the ED. Your blood pressure was high at todays visit. Please see your primary provider within 4 weeks for recheck and re-evaluation. 1) Please call your dentist to schedule a follow up appointment Per institutional requirements, I have reviewed the chart, however, I was not consulted specifically or made aware of this patient by the above midlevel provider. I did not personally evaluate, interact with , or disposition this patient. - Billing Disposition and Condition Condition: STABLE Disposition: Home
== END 2017-11-19 19:23 | disposition home or self-care (01) ==
LOC: UCCORT 18:38
DX: K04.7 Periapical abscess without sinus (principal); K02.9 Dental caries, unspecified; E11.9 Type 2 diabetes mellitus without complications; I10 Essential (primary) hypertension; Z79.84 Long term (current) use of oral hypoglycemic drugs; Z79.899 Other long term (current) drug therapy
CPT/HCPCS: 99202; G0463